=== PATIENT | female | born 1960 | race Caucasian/White ===

== ENCOUNTER 2022-12-27 14:44 | Outpatient (CLI) | payer OTHER, SELFPAY ==
--- NOTE | 2022-12-27 15:00 | CRLHL7_ITS ---
For Patients: As a result of the Century Cures Act, medical imaging exams and procedure reports are released immediately into your electronic medical record. You may view this report before your referring provider. If you have questions, please contact your health care provider. BILATERAL SCREENING MAMMOGRAM WITH COMPUTER-AIDED DETECTION AND TOMOSYNTHESIS TECHNIQUE: CC, MLO and Implant displaced views were obtained. These mammographic images have been obtained using full-field digital technique. These mammographic images were interpreted with the benefit of computer-aided detection. Breast Tomosynthesis was used in this interpretation. COMPARISON FILM: No comparison available. FINDINGS: There are scattered areas of fibroglandular density IMPRESSION: There is no radiographic evidence for malignancy. ASSESSMENT: BI-RADS Category 2: Benign RECOMMENDATION: Routine screening mammogram in 1 year. A lay language report of this examination will be provided to the patient. Justin Crawley M.D. Diagnostic Radiologist [email or web address] RICHELLE/Dictated by: Justin Crawley MD @ 12/28/2022 11:36:00 AM (Electronically Signed)
--- NOTE | 2022-12-27 15:30 | CRLHL7_ITS ---
For Patients: As a result of the Century Cures Act, medical imaging exams and procedure reports are released immediately into your electronic medical record. You may view this report before your referring provider. If you have questions, please contact your health care provider. DXA BONE MINERAL DENSITY STUDY Reason for exam: Asymptomatic menopausal state. Screening. Current height (in): 66. Weight (lb): 145. Menopause age: 57. Ethnicity: White. 1. Have you had a previous hip or vertebral fracture? No. 2. Have you had any fractures during your adult life which did not result from significant trauma (e.g., auto accident)? No. 3. Did either of your parents have a hip fracture? No. 4. Do you smoke? No. 5. Have you ever taken Glucocorticoids? No. 6. Do you have rheumatoid arthritis? No. 7. Do you have secondary osteoporosis? No. 8. Do you drink 3 or more alcoholic drinks per day? No. 9. Are you being treated for osteoporosis? No. 10. Have you ever taken any of the following medications: Actonel, Evista, Fosamax, Miacalcin, Reclast, Boniva, Forteo, HRT (i.e., estrogen/hormone therapy), Protelos, Prolia, Vitamin D, Calcium, other ??? please specify. ANSWER: Yes, vitamin D and calcium. 11. Do you have any of the following medical conditions: Anorexia or bulimia, asthma or emphysema, end stage renal disease, hyperparathyroidism, any seizure disorders, cancer, inflammatory bowel diseases, hysterectomy, other ??? please specify. ANSWER: No. 12. What was your maximum height (inches)? 67. 13. Do you perform weight bearing exercise regularly? Yes. 14. Do you regularly consume dairy products? No. 15. Do you drink caffeinated beverages? Yes. If female: 16. At what age did your period start? 14. 17. Are you premenopausal? No. 18. How many full-term pregnancies have you had? 3. 19. Have you ever missed your period for more than 6 months in a row (not including or menopause)? No. TECHNIQUE: Bone mineral density study was performed using the [employer]annah Wi. FINDINGS: The results of the study expressed as bone mineral density (BMD) are as follows: Lumbar spine L1 to L4: BMD: 0.814 g/cm2. T-score: -2.1. Z-score: -0.6 Neck Left: BMD: 0.676 g/cm2. T-score: -1.6. Z-score: -0.2 Right: BMD: 0.666 g/cm2. T-score: -1.6. Z-score: -0.3 Total Left: BMD: 0.783 g/cm2. T-score: -1.3. Z-score: -0.3 Right: BMD: 0.788 g/cm2. T-score: -1.3. Z-score: -0.3 IMPRESSION: Osteopenia. FRAX 10-year Fracture Risk Major Osteoporotic Fracture: 8.3% Hip Fracture: 0.8% Reported Risk Factors: [place] () Neck BMD=0.666, BMI= 23.4 Justin Crawley M.D. Diagnostic Radiologist [email or web address] GEOVANNA/vanessa mendez/Dictated by: Justin Crawley MD @ 12/28/2022 7:01:00 AM (Electronically Signed)
--- NOTE | 2022-12-27 16:00 | CRLHL7_ITS ---
For Patients: As a result of the Cures Act, medical imaging exams and procedure reports are released immediately into your electronic medical record. You may view this report before your referring provider. If you have questions, please contact your health care provider. CLINICAL HISTORY: family hx of heart disease TECHNIQUE: The carotid circulations and the vertebral arteries in the neck were examined with manrique-scale ultrasound, color-flow and Doppler spectral analysis. Degrees of stenosis were determined using SRU 2002 Consensus Panel Criteria. FINDINGS: Sonographic images demonstrate no evidence of atherosclerotic plaque formation or suspicious soft tissue mass. There was antegrade blood flow demonstrated within the vertebral arteries and the subclavian arteries demonstrated a normal triphasic waveform. The spectral Doppler tracings of the common carotid, internal and external carotid arteries demonstrate no abnormal turbulence or spectral broadening. There was no significant elevation of peak systolic blood flow which would indicate a hemodynamically-significant stenosis by SRU criteria. The ICA/CCA peak systolic velocity ratio measures 1.1 on the right and 0.9 on the left. IMPRESSION: Normal carotid ultrasound. Dictated by Justin Crawley MD @ 12/28/2022 9:15:50 AM (Electronically Signed)
== END 2022-12-27 14:45 | disposition home or self-care (01) ==
LOC: MAMMO 14:45
PROVIDERS: PCP Physician Assistant Medical; Visit Provider Physician Assistant Medical
DX: Z12.31 Encounter for screening mammogram for malignant neoplasm of breast (principal); Z13.820 Encounter for screening for osteoporosis; M85.89 Other specified disorders of bone density and structure, multiple sites; Z78.0 Asymptomatic menopausal state; Z82.49 Family history of ischemic heart disease and other diseases of the circulatory system
CPT/HCPCS: 77063; 77067; 77080; 93880

== ENCOUNTER 2023-10-10 09:05 | Outpatient (CLI) | payer OTHER, SELFPAY | END 2023-10-10 09:06 | disposition home or self-care (01) | LOC: NFLDREF 10-29 15:33 | PROVIDERS: PCP Physician Assistant Medical; Referring Provider Physician Assistant Medical; Visit Provider Physician Assistant Medical | DX: Z00.00 Encounter for general adult medical examination without abnormal findings (principal); M54.50 Low back pain, unspecified; G89.29 Other chronic pain | CPT/HCPCS: 80053; 80061; 84443 ==

== ENCOUNTER 2023-10-29 07:06 | Outpatient (CLI) | payer OTHER, SELFPAY ==
--- OUTSIDE RECORDS SUMMARY | 2023-10-29 07:09 | XMS_ITS | Data Portability ---
Author Organization [facility], [id number] Address [address] [place] [address] Care Team Providers Care Inside Sales Administrator Name Role Phone ROSA ELENA CANALES Primary Care Provider Assessment No assessment recorded. Plan of Treatment Reminders Order Date Submit Date Provider Last Modified By Organization Details Last Modified Time Details Appointments None recorded. Lab pathology study 2020 021 MACEY [facility], [address] [place], [address], 11:29:35 Referral None recorded. Procedures None recorded. Surgeries None recorded. Imaging None recorded. Medication Orders None recorded. Patient TargetsNo targets recorded. Patient InstructionsNo instructions recorded. Reason for Referral None Reported. Results Created Date Observation Date Name Description Value Unit Range Abnormal Flag LastModifiedBy Organization Detail LastModifiedTime 11/11/1911/10/2020 SURGI ABRAHAM PATHO LOGY case report See note Not Available [facility] [address] [place], [address], 11/15/2020 11:29:35 Result Notes None recorded. Procedures Surgical History Date Name Laterality Status Provider Name and Address Organization Details Recorded Time 11/11/19 21 Colposcopy (vaginal & cervical) ([facility]) [place] [address] [facility],[address], [place], [address], HERMANN Berg [facility] 11/10/2020 14:42:18 11/11/19 21 endocervical curettage completed Jung Mattsonsylviahetal marks [facility] 11/15/2020 11:34:18 10/21/19 21 Date of Last Pap Smear completed [facility]MAN[facility] Jesus Buddy Berg [facility] 11/10/2020 13:57:38 Imaging Results None recorded. Procedure Notes None recorded. Medical Equipment None Reported. Allergies No known drug allergies Medications Not known to be on any medication Vitals Date Recorded Body weight Body mass index (BMI) Body height Systolic blood pressure Diastolic blood pressure Provider Name and Address Organization Details Last Updated DateTime 11/10/2020 65928.24 g 22.8 kg/m2 167.64 cm 118 mm[Hg] 80 mm[Hg] Marci Anderson [facility] 13:57:26 Social History Question Answer Notes LastModified by xTurionizat ion Details LastModified Time Tobacco Smoking Status Never Smoker [facility] 11/10/2020 14:06:23 Do You Have An Advance Directive? No Information not available 11/10/2020 What Is Your Level Of Alcohol Consumption? Occasional 4dr/wk Information not available 11/10/2020 What Is Your Level Of Caffeine Consumption? Moderate 2c/day Information not available 11/10/2020 Which Illicit Or Recreational Drugs Have You Used? None Information not available 11/10/2020 History Of Domestic Violence No Information no t available 11/10/2020 Marital Status Informatio n not available 11/10/2020 Sex: Female Functional Status Question Answer Note LastModified by Organization D etails LastModified Time What is your exercise level? Moderate Information not available 11/10/2020 Mental Status None recorded. Family History Nothing Reported. Medical History No medical history recorded. Gynecological History Statement/Question Response History of Abnormal PAP Y Age at Menarche: 14 Date of LMP Current Control Method Menopause Age at Menopause 55 Date of Last Pap Smear 10/20/2020 Obstetrics History GPAL:G 3 P 3 0 0 3 Type Value Full Term 3 Living 3 Total 3 Past Encounters Encounter ID Performer Location Encounter Start Date Encounter Closed Date Diagnosis/Indication Diagnosis SNOMED-CT Code [id number] HANY OLIVAREZ MD [id number] [address] [facility] [address] [place] [address] 11/10/2020 13:50:24 11/10/2020 14:57:03 Atypical squamous cells of undetermined significance on cervical Papanicolaou smear 587248210 Condyloma acuminata of vulva 330198630 Health Concerns Section Related Observation LastModified by Organization Detai ls LastModified Time None Recorded Concern Status LastModified by Organization Details LastModified Time None Recorded Advance Directives Directive N: Payers Encounter Date Sequence Insurance Name Policy Number Policy Lazo Covered Member ID Lazo Member ID Guarantor Name 11/10/2020 1 [employer] [id number] Laura Bentley [id number] Laura Bentley Notes Date Note Type Note Provider Name and Address Organization Details Recorded Time 11/10/2020 text/html HPI Notes: 60yo postmenopausal female presenting for colposcopy. 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 Last pap 08/16/15- negative 10/20/20- ASCUS, +HR HPV not 16/18 Non-smoker. No STi history. [place] [address] [facility],[address], [place], [address], [facility] 11/10/2020 14:46:13 OBGyn Episode Ob Episode Information Episode Created Date Number of Fetuses Patient Bloodtype Patient rh Status Prepregnancy Weight lbs Domestic Partner Domestic Partner Phone Father Name Knock Up Assembler Status 11/11/19 21 1 CLOSED Fetus Data First Name Last Name Admitted to NICU Weight (g) Sex Living Outcome Pediatric Complications Fetus ID Race Codes Race Delivery Type 3316.66 4704 M Full Term [id number] Joel Calculation Initial Joel Date Initial Exam Date Initial Exam Provider Initial Ultrasound Date Last Menstrual Period Date Ultra Sound Weeks Gestation 0 Eighteen To Twenty Week Joel Update Ultra Sound Date Fundal Height At Umbil Quickening Date Ultra Sound Latest Weeks Gestation Final Joel Confirmed By Final Joel Confirmed Date Final Joel Date Ultra Sound Latest Days Gestation 0 0 Menstrual History Last Menstrual Date Menses Monthly On Bcp Conception Prior Menses Frequency Hcg Plus Date Menarche Onset Age Delivery Information Delivery Date Delivery Type Labor Anesthesia Weeks Gestation Incision Type Labor Labor Length Hrs Delivered By Post Complications Tubal Sterilization Discharge Date Comments 4 4 Discharge Information Feeding Method Contraceptive Method Maternal HG B and HCT Levels Ob Episode Information Episode Created Date Number of Fetuses Patient Bloodtype Patient rh Status Prepregnancy Weight lbs Domestic Partner Domestic Partner Phone Father Name Knock Up Assembler Status 11/11/19 21 1 CLOSED Fetus Data First Name Last Name Admitted to NICU Weight (g) Sex Living Outcome Pediatric Complications Fetus ID Race Codes Race Delivery Type 3345.24 1 M Full Term [id number] Joel Calculation Initial Joel Date Initial Exam Date Initial Exam Provider Initial Ultrasound Date Last Menstrual Period Date Ultra Sound Weeks Gestation 0 Eighteen To Twenty Week Joel Update Ultra Sound Date Fundal Height At Umbil Quickening Date Ultra Sound Latest Weeks Gestation Final Joel Confirmed By Final Joel Confirmed Date Final Joel Date Ultra Sound Latest Days Gestation 0 0 Menstrual History Last Menstrual Date Menses Monthly On Bcp Conception Prior Menses Frequency Hcg Plus Date Menarche Onset Age Delivery Information Delivery Date Delivery Type Labor Anesthesia Weeks Gestation Incision Type Labor Labor Length Hrs Delivered By Post Complications Tubal Sterilization Discharge Date Comments 9 6 Discharge Information Feeding Method Contraceptive Method Maternal HG B and HCT Levels Ob Episode Information Episode Created Date Number of Fetuses Patient Bloodtype Patient rh Status Prepregnancy Weight lbs Domestic Partner Domestic Partner Phone Father Name Knock Up Assembler Status 11/11/19 21 1 CLOSED Fetus Data First Name Last Name Admitted to NICU Weight (g) Sex Living Outcome Pediatric Complications Fetus ID Race Codes Race Delivery Type 3656.85 8704 F Full Term [id number] Joel Calculation Initial Joel Date Initial Exam Date Initial Exam Provider Initial Ultrasound Date Last Menstrual Period Date Ultra Sound Weeks Gestation 0 Eighteen To Twenty Week Joel Update Ultra Sound Date Fundal Height At Umbil Quickening Date Ultra Sound Latest Weeks Gestation Final Joel Confirmed By Final Joel Confirmed Date Final Joel Date Ultra Sound Latest Days Gestation 0 0 Menstrual History Last Menstrual Date Menses Monthly On Bcp Conception Prior Menses Frequency Hcg Plus Date Menarche Onset Age Delivery Information Delivery Date Delivery Type Labor Anesthesia Weeks Gestation Incision Type Labor Labor Length Hrs Delivered By Post Complications Tubal Sterilization Discharge Date Comments 1 10 Discharge Information Feeding Method Contraceptive Method Maternal HG B and HCT Levels
--- OUTSIDE RECORDS SUMMARY | 2023-10-29 07:09 | XMS_ITS | Referral Summary ---
Author Organization [place] Address [address] [place] [id number] Care Team Providers Care Electronic Scanner Operator Name Role Phone No Ref-Primary, Physician Primary Care Provider Allergies No known active allergies Medications No known medications Active Problems Problem Noted Date Diagnosed Date Thyroid nodule 08/11/2014 Hyperlipidemia LDL goal <160 10/01/2012 Abnormal uterine bleeding 10/01/2012 Immunizations Name Administration Dates Next Due Influenza (IIV3) PF 02/25/2012 Influenza Vaccine >6 months,quad, PF 02/22/2016 TDAP (Adacel,Boostrix) 07/11/2010 Social History Tobacco Use Types Packs/Day Years Used Date Smoking Tobacco: Never Smokeless Tobacco: Never Alcohol Use Standard Drinks/Week Comments Yes 0 (1 standard drink = 0.6 oz pur e alcohol) wine-socially PHQ-2 Answer Date Recorded PHQ-2 Score 0 05/23/2018 Adolescent Education Answer Date Record ed Getting School Help Needed Not on file 02/16 Sex and Gender Information Value Date Recorded Sex Assigned at Not on file Gender Identity Not on file Sexual Orientation Not on file Last Filed Vital Signs Vital Sign Reading Time Taken Comments Blood Pressure 112/78 02/22/2016 8:38 AM CDT Pulse 62 02/22/2016 8:38 AM CDT Temperature 36.9 ??C (98.4 ??F) 02/22/2016 8:38 AM CD T Respiratory Rate 16 02/23/2013 9:13 AM CDT Oxygen Saturation 98% 08/11/2014 10:44 AM CDT Inhaled Oxygen Concentration - - Weight 67.6 kg (149 lb) 02/22/2016 8:38 AM CDT Height 167 cm (5' 5.75) 02/22/2016 8:38 AM CDT Body Mass Index 24.23 02/22/2016 8:38 AM CDT Plan of Treatment Not on file Procedures Procedure Name Priority Date/Time Associated Diagnosis Comments MA SCREENING WITH IMPLANTS BILATERAL W/ KARL Routine 09/18/2021 9:41 AM CDT Visit for screening mammogram COLONOSCOPY - HIM SCAN 06/02/2019 12:00 AM APPLICATION SPEC HPV HIGH RISK TYPES DNA CERVICAL Routine 02/22/2016 9:44 AM CDT Screening for cervical cancer PAP IMAGED THIN LAYER SCREEN Routine 02/22/2016 12:00 AM CDT Screening for cervical cancer GLUCOSE Routine 08/11/2014 11:11 AM CDT Routine General Medical Examination At A Health Care Facility LIPID REFLEX TO DIRECT LDL PANEL Routine 08/11/2014 11:11 AM CDT Routine General Medical Examination At A Health Care Facility from Last 3 Months or Most Recently Relevant to Health Maintenance Results * MA Screen with Implants Bilateral w/Karl (09/18/2021 9:41 AM CDT) Anatomical Region Laterality Modality Breast Bilateral Mammography Narrative 09/18/2021 11:31 AM CDT BILATERAL FULL FIELD DIGITAL SCREENING MAMMOGRAM WITH TOMOSYNTHESIS Performed on: 09/18/21 Compared to: 06/01/2020 and 08/11/2014 Technique: ??This study was evaluated with the assistance of Computer-Aided Detection. ??Breast Tomosynthesis was used in interpretation. Findings: The breasts are heterogeneously dense, which may obscure small masses. ??There are breast augmentation changes in both breasts. There is no radiographic evidence of malignancy. IMPRESSION: ACR BI-RADS Category 2: Benign RECOMMENDED FOLLOW-UP: Annual routine screening mammogram The results and recommendations of this examination will be communicated to the patient. Yumiko Garcia PA-C [facility] * COLONOSCOPY - HIM SCAN (06/02/2019 12:00 AM APPLICATION SPEC) 06/02/2019 Provider Outside PROCEDURES * HPV High Risk Types DNA Cervical (02/22/2016 9:44 AM CDT) HPV 16 DNA Negative [facility] HPV 18 DNA Negative [facility] Other HR HPV Negative [facility] Final Diagnosis This patient's sample is negative for HPV DNA. ?? The [employer] (ACOG) recommends any woman between 30-65 years old who receives negative test results on both Pap cytology screening and HPV DNA testing should be rescreened in 5 years. (Note) METHODOLOGY: ??The Elliott daksha 4800 system uses automated extraction, simultaneous amplification of HPV (L1 region) and beta-globin, followed by ??real time detection of fluorescent labeled HPV and beta globin using specific oligonucleotide probes . The test specifically identifies types HPV 16 DNA and HPV 18 DNA while concurrently detecting the rest of the high risk types (31, 33, 35, 39, 45, 51, 52, 56, 58, 59, 66 or 68). COMMENTS: ??This test is not intended for use as a screening device for women under age 30 with normal cervical cytology. ??Results should be correlated with cytologic and histologic findings. Close clinical followup is recommended. This test was developed and its performance characteristics determined by the [facility]. It has not been cleared or approved by the FDA. The laboratory is regulated under CLIA as qualified to perform high-complexity testing. This test is used for clinical purposes. It should not be regarded as investigational or for research. [facility] Specimen Description Cervical Cells [facility] [address] [facility] Cervical Cells 02/22/2016 9: 44 AM CDT 02/22/2016 9:50 AM CDT Lynn Tena MD LAB - BLOOD ORDER [facility] [address] [place] [address] * Pap imaged thin layer screen with HPV - recommended age 30 - 65 years (select HPV order below) (02/22/2016 12:00 AM CDT) PAP NIL COPATH Copath Report Patient Name: LAURA KITCHEN MR#: [id number] Specimen #: [id number] Collected: 02/22/2016 Received: 02/22/2016 Reported: 02/24/2016 08:58 Ordering Phy(s): LYNN TENA SPECIMEN/STAIN PROCESS: Pap imaged thin layer prep screening (Surepath, FocalPoint with guided screening) ? Pap-Cyto x 1, HPV ordered x 1 SOURCE: Cervical, endocervical Pap imaged thin layer prep screening (Surepath, FocalPoint with guided screening) SPECIMEN ADEQUACY: Satisfactory for evaluation. -Transformation zone component present. CYTOLOGIC INTERPRETATION: Negative for Intraepithelial Lesion or Malignancy Electronically signed out by: AMRIK Melendrez (ASCP) Processed and screened at [facility] CLINICAL HISTORY: LMP: 02/03/2013 Papanicolaou Test Limitations: ??Cervical cytology is a screening test with limited sensitivity; regular screening is critical for cancer prevention; Pap tests are primarily effective for the diagnosis/preventi on of squamous cell carcinoma, not adenocarcinomas or other cancers. TESTING LAB LOCATION: [address] ??[address] COLLECTION SITE: Client: ??[facility] Location: [facility] (R) COPATH Cytologic material (specimen) 02/22/2016 02/22/2016 3:35 PM CDT Lynn Tena MD LAB - [facility] ICAL SPECIMEN COPATH * (ABNORMAL) LIPID REFLEX TO DIRECT LDL PANEL (08/11/2014 11:11 AM CDT) Cholesterol 219(H) <200 mg/dL [facility] Comment: LDL Cholesterol is the primary guide to therapy. The NCEP recommends further evaluation of: patients with cholesterol greater than 200 mg/dL if additional risk factors are present, cholesterol greater than 240 mg/dL, triglycerides greater than 150 mg/dL, or HDL less than 40 mg/dL. Triglycerides 60 0 - 150 mg/dL [facility] HDL Cholesterol 93 >50 mg/dL [facility] LDL Cholesterol Calculated 114 0 - 129 mg/dL [facility] Comment: LDL Cholesterol is the primary guide to therapy: LDL-cholesterol goal in high risk patients is <100 mg/dL and in very high risk patients is <70 mg/dL. VLDL-Cholesterol 12 0 - 30 mg/dL [facility] Cholesterol/HDL Ratio 2.4 0.0 - 5.0 [facility] Blood specimen (specimen) 08/11/2014 11:11 AM CDT 08/11/2014 11:13 AM CDT Kari Montero APRN, CNP LAB - BLOOD ORDERABLES Performing Organization Address City/[facility] [address]/ZIP Co de Phone Number [facility] [address] [place] [id number] * GLUCOSE (08/11/2014 11:11 AM CDT) Glucose 85 70 - 99 mg/dL [facility] Comment: Effective 12/09/2013, the reference range for this assay has changed to reflect new instrumentation/methodology. Blood specimen (specimen) 08/11/2014 11:11 AM CDT 08/11/2014 11:13 AM CDT Kari Montero APRN CODE OFFICIAL LAB - BLOOD ORDERABLES Performing Organization Address City/[facility] [address]/ZIP Co de Phone Number [facility] [address], [place] [address] from Last 3 Months or Most Recently Relevant to Health Maintenance Care Teams Electronic Scanner Operator Relationship Specialty Start Date End Date No Ref-Primary, Physician PCP - General 08/29/15
--- OUTSIDE RECORDS SUMMARY | 2023-10-29 07:09 | XMS_ITS | Clinical Summary ---
Author Organization [employer] [facility] [employer] [facility] Address [place], [place] [address] Care Team Providers Care Underwriting Technician Name Role Phone Pcp, No Primary Care Provider Unavailabl e Allergies No known active allergies Medications Medication Sig Dispensed Refills Start Date End Date Status predniSONE (DELTASONE) 50 mg tab tabletIndications:CO VID-19 virus infection One po QAM as needed symptoms. 10 Tablet 06/05/2023 Active codeine-guaiFENesin (ROBITUSSIN AC) 10-100 mg/5 mL liquidIndications:CO VID-19 virus infection 2 teaspoons p.o. q8hr as needed for cough/sleep 120 mL 06/05/2023 Active Social History Tobacco Use Types Packs/Day Years Used Date Smoking Tobacco: Never Assessed Sex and Gender Information Value Date Recorded Sex Assigned at Not on file Gender Identity Not on file Sexual Orientation Not on file Plan of Treatment Health Maintenance Due Date Last Done Comments Tdap 1973 Depression screening for age 12+ 1974 HIV for age 15-65 1977 BMI (ht and wt on same day) for age 18+ 01/04/1980 Hepatitis C screening for age 18-79 01/04/1980 Tetanus booster 1982 Colonoscopy through age 75 2007 Lipids for age 45-75 2007 Mammogram for age 45-75 2007 Zoster (shingles) series for age 50+ (1 of 2) 01/04/2012 COVID-19 vaccine series ( - season) 2023 Influenza for age 50-64 01/12/2024 Pap test for age 21-65 10/04/2025 3, 09/29/2021, 09/29/2021, Additional history exists Pneumococcal series for age 6-64 Aged Out No longer eligible based on patient's age to complete this topic Procedures Procedure Name Priority Date/Time Associated Diagnosis Comments HPV THIN PREP Routine 10/04/2022 9:15 AM CDT from Last 3 Months or Most Recently Relevant to Health Maintenance Results * HPV HIGH RISK (10/04/2022 9:15 AM CDT) TYPE 16 Negative Negative 10/11/2022 5:59 AM CDT [facility] TYPE 18 Negative Negative 10/11/2022 5:59 AM CDT [facility] OTHER HIGH RISK TYPES Negative Negative 10/11/2022 5:59 AM CDT [facility] Other (Cervical/Vagina l) 10/04/2022 9:15 AM CDT 10/05/2022 2:14 PM CDT Narrative [facility] - 10/11/2022 5:59 AM CDT HPV types 16, 18, 31, 33, 35, 39, 45, 51, 52, 56, 58, 59, 66 and 68 DNA were undetectable or below the pre-set threshold. Methodology: Elliott Shantell 4800 HPV Test Yumiko Garcia PA-C [facility] [address] [place] [address], from Last 3 Months or Most Recently Relevant to Health Maintenance Care Teams Underwriting Technician Relationship Specialty Start Date End Date Pcp, No . PCP - General 09/24/14
--- OUTSIDE RECORDS SUMMARY | 2023-10-29 07:09 | XMS_ITS | Clinical Summary ---
Author Organization [employer] Address [address] [place] [id number] Care Team Providers Care Inside Sales Account Representative Name Role Phone No Ref-Primary, Physician Primary Care Provider Allergies No known active allergies Medications No known medications Active Problems Problem Noted Date Diagnosed Date Thyroid nodule 08/11/2014 Hyperlipidemia LDL goal <160 10/01/2012 Abnormal uterine bleeding 10/01/2012 Immunizations Name Administration Dates Next Due Influenza (IIV3) PF 02/25/2012 Influenza Vaccine >6 months,quad, PF 02/22/2016 TDAP (Adacel,Boostrix) 07/11/2010 Family History Medical History Relation Comments Family History Negative Brother 5 Alzheimer Disease Father Family History Negative Mother Family History Negative Sister 1 Breast Cancer No family hx of Cancer - colorectal No family hx of Relation Status Comments Brother Father Mother Alive Sister Social History Tobacco Use Types Packs/Day Years [...] 02/22/2016 8:38 AM CDT Plan of Treatment Health Maintenance Due Date Last Done Comments ADVANCE CARE PLANNING 1962 ANNUAL REVIEW OF HM ORDERS [address] CT COLONOGRAPHY 1962 FIT 1962 FLEX SIG 1962 sDNA (Cologuard) 1962 HIV SCREENING 1977 HEPATITIS C SCREENING 01/04/1980 ZOSTER IMMUNIZATION (1 of 2) 01/04/2012 LIPID 08/12/2015 08/11/2014 GLUCOSE 08/11/2017 08/11/2014 YEARLY PREVENTIVE VISIT 01/16/2018 01/16/2017, 02/23 HPV TEST 02/21/2019 02/22/2016 PAP 02/21/2019 02/22/2016, 08/12, 07/11/2012 RSV VACCINE ( & 60+) (1 - 1-dose 60+ series) 2022 COVID-19 Vaccine (3 - season) 2023 01/13/2021, 12/20/2020 PHQ-2 (once per calendar year) 2023 02/22/2016 MAMMO SCREENING 09/19/2023 09/18/2021, 05/14, 03/31/2019, Additional history exists INFLUENZA VACCINE (Season Ended) 2024 02/09/2019, 03/05/2018, 01/16/2017, Additional history exists COLONOSCOPY 06/02/2024 06/02/2019, 01/13/2014 COLORECTAL CANCER SCREENING 06/02/2024 DTAP/TDAP/TD IMMUNIZATION (3 - Td or Tdap) 09/04/2025 09/05/2015, 07/11/2010 HPV IMMUNIZATION Aged Out No longer e ligible based on patient's age to complete this topic IPV IMMUNIZATION Aged Out No longer e ligible based on patient's age to complete this topic MENINGITIS IMMUNIZATION Aged Out No l onger eligible based on patient's age to complete this topic Pneumococcal Vaccine: Pediatrics (0 to 5 Years) and At-Risk Patients (6 to 64 Years) Aged Out No longer eligible based on patient's age to complete this topic RSV MONOCLONAL ANTIBODY Aged Out No l onger eligible based on patient's age to complete this topic Procedures Procedure Name Priority Date/Time Associated Diagnosis Comments MA SCREENING WITH IMPLANTS BILATERAL W/ KARL Routine 09/18/2021 9:41 AM CDT Visit for screening mammogram COLONOSCOPY - HIM SCAN 06/02/2019 12:00 AM WEB PRESS OPERATOR HPV HIGH RISK TYPES DNA CERVICAL Routine [...] COLONOSCOPY - HIM SCAN (06/02/2019 12:00 AM WEB PRESS OPERATOR) 06/02/2019 Provider Outside PROCEDURES * HPV High Risk Types DNA Cervical (02/22/2016 9:44 AM CDT) HPV 16 DNA Negative [facility] HPV 18 DNA Negative [facility] Other HR HPV Negative [facility] Final Diagnosis This patient's sample is negative for HPV DNA. ?? The [place] [employer] (ACOG) recommends any woman between 30-65 years old who receives negative test results on both Pap cytology screening and HPV DNA testing should be rescreened in 5 years. (Note) METHODOLOGY: ??The [employer] 4800 system uses automated extraction, simultaneous [...] and its performance characteristics determined by the [facility], Molecular Diagnostics Laboratory. It has not been cleared or approved by the FDA. The laboratory is regulated under CLIA as qualified to perform high-complexity testing. This test is used for clinical purposes. It should not be regarded as investigational or for research. [facility] Specimen Description Cervical Cells [id number] [facility] Cervical Cells 02/22/2016 9: 44 AM CDT 02/22/2016 9:50 AM CDT Lynn Tena MD LAB - BLOOD ORDER [facility] [address] [place] [address] * Pap imaged thin layer screen with HPV - recommended age 30 - 65 years (select HPV order below) (02/22/2016 12:00 AM CDT) PAP KENYATTA Avalos Report Patient Name: LAURA KITCHEN MR#: [id number] Specimen #: [id number] Collected: 02/22/2016 Received: 02/22/2016 Reported: 02/24/2016 08:58 [...] AMRIK Melendrez (ASCP) Processed and screened at [facility] CLINICAL HISTORY: LMP: 02/03/2013 Papanicolaou Test Limitations: ??Cervical cytology is a screening test with limited sensitivity; regular screening is critical for cancer prevention; Pap tests are primarily effective for the diagnosis/preventi on of squamous cell carcinoma, not adenocarcinomas or other cancers. TESTING LAB LOCATION: [address] ??[address] COLLECTION SITE: Client: ??[facility] Location: [facility] (R) [facility] Cytologic material (specimen) 02/22/2016 02/22/2016 3:35 PM CDT Lynn Tena MD LAB - [facility] ICAL SPECIMEN COPATH * (ABNORMAL) LIPID REFLEX TO DIRECT LDL PANEL (08/11/2014 11:11 AM CDT) Cholesterol 219(H) <200 mg/dL [facility] Comment: LDL Cholesterol is the primary guide to therapy. The NCEP recommends further evaluation of: patients with cholesterol greater than 200 mg/dL if additional risk factors are present, cholesterol greater than 240 mg/dL, triglycerides greater than 150 mg/dL, or HDL less than 40 mg/dL. Triglycerides 60 0 - 150 mg/dL [facility] HDL Cholesterol 93 >50 mg/dL [facility] LDL Cholesterol Calculated 114 0 - 129 mg/dL [facility] Comment: LDL Cholesterol is the primary guide to therapy: LDL-cholesterol goal in high risk patients is <100 mg/dL and in very high risk patients is <70 mg/dL. VLDL-Cholesterol 12 0 - 30 mg/dL [facility] Cholesterol/HDL Ratio 2.4 0.0 - 5.0 [facility] Blood specimen (specimen) 08/11/2014 11:11 AM CDT 08/11/2014 11:13 AM CDT Kari Montero APRN, CNP LAB - BLOOD ORDERABLES Performing Organization Address City/[facility]/ZIP Co de Phone Number [facility] [address], [place] [address] * GLUCOSE (08/11/2014 11:11 AM CDT) Glucose 85 70 - 99 mg/dL [facility] Comment: Effective 12/09/2013, the reference range for this assay has changed to reflect new instrumentation/methodology. Blood specimen (specimen) 08/11/2014 11:11 AM CDT 08/11/2014 11:13 AM CDT Kari Montero APRN, CNP LAB - BLOOD ORDERABLES Performing Organization Address City/[facility]/ZIP Co de Phone Number [facility] [address], [place] [address] from Last 3 Months or Most Recently Relevant to Health Maintenance Care Teams Inside Sales Account Representative Relationship Specialty Start Date End Date No Ref-Primary, Physician PCP - General 08/29/15
--- OUTSIDE RECORDS SUMMARY | 2023-10-29 07:09 | XMS_ITS | Clinical Summary ---
Author Organization [facility] Address [address] [place] [address] Care Team Providers Care [employer] Guidance Counselor Name Role Phone Clinician, Not Found MD Primary Care Provider Un available Source Comments You are receiving this document as you are listed as the primary care provider,follow-up provider, or the patient has been referred to you for consultation.This is in compliance with the Medicare and[facility] Hospital[facility] EHR Incentive Program,which states Providers who transition their patient to another setting of careor provider of care or refers their patient to another provider of care shouldprovide summary care record for each transition of care or referral. [employer] Allergies No known active allergies Medications No known medications Active Problems Problem Noted Date Diagnosed Date Rotator cuff syndrome 02/04/2017 Thyroid nodule 08/11/2014 Hyperlipidemia LDL goal <160 10/01/2012 Immunizations Name Administration Dates Next Due Flublok (RIV4) 02/09/2019 Influenza IIV4 (Quadrivalent) 0.5mL (82999) 10/2016 Tdap 09/05/2015,07/21/2010 Family History Medical History Relation Name Comments Alzheimer's Father Relation Name Status Comments Father Social History Tobacco Use Types Packs/Day Years Used Date Smoking Tobacco: Never Smokeless Tobacco: Never Alcohol Use Standard Drinks/Week Comments Yes 0 (1 standard drink = 0.6 oz pur e alcohol) 2 weekly PHQ-2 Answer Date Recorded PHQ-2 Score 0 04/01/2019 Sex and Gender Information Value Date Recorded Sex Assigned at Not on file Gender Identity Not on file Sexual Orientation Not on file Last Filed Vital Signs Vital Sign Reading Time Taken Comments Blood Pressure 123/73 04/01/2019 9:40 AM PUTTY REMOVER Pulse 55 04/01/2019 9:40 AM PUTTY REMOVER Temperature - - Respiratory Rate - - Oxygen Saturation - - Inhaled Oxygen Concentration - - Weight 69.4 kg (153 lb) 04/01/2019 9:40 AM PUTTY REMOVER Height 165.7 cm (5' 5.25) 04/01/2019 9:40 AM CS T Body Mass Index 25.27 04/01/2019 9:40 AM PUTTY REMOVER Plan of Treatment Health Maintenance Due Date Last Done Comments Hep C Screening (Preventive Services) 1962 HIV Screening (Preventive Services) 1978 Zoster/Shingles (1 of 2) 01/04/2012 Mammogram 03/30/2020 03/30/2019 (Completed), 09/24/2016 (Completed) Adult Preventive Visit 04/01/2020 9, 01/16/2017 COVID-19 Vaccine (2022-2 4 season) 2023 12/20/2020 Influenza (Season Ended) 2024 019, 01/16/2017 Cervical Cancer Screening 04/01/20242018, 02/22/2016 (Completed) Cholesterol 04/01/2024 04/01/2019, 01/16/2017 Colonoscopy 06/02/2024 06/02/2019, 01/13/2014 (Completed) DTaP/Tdap/Td (3 - Tdap) 09/04/2025 09/05/19 16, 07/21/2010 HepA Aged Out No longer eligi ble based on patient's age to complete this topic HepB Aged Out No longer eligi ble based on patient's age to complete this topic Hib Aged Out No longer eligi ble based on patient's age to complete this topic IPV (Polio) Aged Out No longer eligi ble based on patient's age to complete this topic MCV4 Aged Out No longer eligi ble based on patient's age to complete this topic Pneumococcal Aged Out No longer eligi ble based on patient's age to complete this topic Procedures Procedure Name Priority Date/Time Associated Diagnosis Comments COLONOSCOPY S 06/02/2019 LIPID PANEL & DIRECT LDL (IF NEEDED) Routine 04/01/2019 10:28 AM PUTTY REMOVER Encounter for screening for cardiovascular disorders PAP TEST Routine 04/01/2019 10:21 AM PUTTY REMOVER Screening for malignant neoplasm of cervix from Last 3 Months or Most Recently Relevant to Health Maintenance Results * COLONOSCOPY S (06/02/2019) Beatriz Uriostegui DO DUMMY/OTHER/AR * (ABNORMAL) Lipid Panel - LDLD If Trig High (04/01/2019 10:28 AM PUTTY REMOVER) Cholesterol 230(H) 0 - 199 mg/dL 04/01/2019 4:49 PM [facility] Triglyceride 56 <=149 mg/dL 04/01/2019 4:49 PM [facility] HDL Cholesterol 87 >=40 mg/dL 9 4:49 PM [facility] LDL, Calculated 132(H) <130 mg/dL 9 4:49 PM [facility] Non HDL Chol, Calculated 143 mg/dL 04/01/2019 4:49 PM [facility] Cholesterol/HDL Ratio 2.6 04/01/2019 4:49 PM [facility] Hours Fasting 19 04/01/2019 4:49 PM [facility] Blood Venipuncture / Unknown 04/01/2019 10:28 AM PUTTY REMOVER 04/01/2019 10:28 AM PUTTY REMOVER Beatriz Uriostegui DO LAB_1 [facility] [address] [place] [address], [facility] [phone] [facility] [address] [place] [address], [facility] [phone] * PAP Test (04/01/2019 10:21 AM PUTTY REMOVER) Case Report Pap ? Case: [id number] ? Authorizing Provider: ??Beatriz Uriostegui, DO ?? Collected: ? 04/01/2019 10:21 AM ? [facility] Received: ?04/01/2019 10:48 AM ? First Screen: ?Kyleigh, Terrie J, CT (ASCP) ? Pathologist: ? Barry Ingram MD ? Specimen: ?Pap Test, Routine, Cervix/Endocervix ? 04/14/2019 4:52 PM PUTTY REMOVER [facility] Pap Specimen Adequacy Satisfactory for evaluation, endocervical/foster sformation zone component absent. 04/14/2019 4:52 PM PUTTY REMOVER [facility] Pap Interpretation Negative for intraepithelial lesion or malignancy (NILM). 04/14/2019 4:52 PM PUTTY REMOVER [facility] Gross Description The specimen is received in SurePath fixative and properly labeled. 1 Pap-stained SurePath slide is prepared. 04/14/2019 4:52 PM PUTTY REMOVER [facility] Pap Disclaimer The Pap test is a screening test designed to aid in the detection of cervical cancer and its precursor lesions. It is not a diagnostic procedure and should not be used as the sole means of detecting cervical cancer. Both false-positive and false-negative reports may occur. 04/14/2019 4:52 PM PUTTY REMOVER [facility] Embedded Images 9 4:52 PM PUTTY REMOVER [facility] Other Specimen Type ENTIRE ENDOCERVIX / Unknown 04/01/2019 10:21 AM PUTTY REMOVER 04/01/2019 10:48 AM PUTTY REMOVER Comment:LMP: No LMP recorded . Patient is postmenopausal. Beatriz Uriostegui DO LAB PATHOLOGY [facility] [address] [place] [address], [facility] from Last 3 Months or Most Recently Relevant to Health Maintenance Care Teams [employer] Guidance Counselor Relationship Specialty Start Date End Date Clinician, Not Found, [place] [address] PCP - General 08/28/22
--- NOTE | 2023-10-29 08:48 | W.ANESCHARGE ---
Anesthesia Charges Start Date/Time Anesthesia Start Date: 10/29/23 Anesthesia Start Time: 08:09 Stop Date/Time Anesthesia Stop Date: 10/29/23 Anesthesia Stop Time: 08:48
--- NOTE | 2023-10-29 09:42 | W.ANESCHARGE ---
Anesthesia Charges Start Date/Time Anesthesia Start Date: 10/29/23 Anesthesia Start Time: 08:09 Stop Date/Time Anesthesia Stop Date: 10/29/23 Anesthesia Stop Time: 08:48
== END 2023-10-29 07:07 | disposition home or self-care (01) ==
LOC: OP CLINIC 07:07
PROVIDERS: PCP Physician Assistant Medical; Visit Provider Surgery
DX: Z12.11 Encounter for screening for malignant neoplasm of colon (principal); K62.1 Rectal polyp; Z86.010 Personal history of colon polyps
CPT/HCPCS: 00811; 00812; 45385; 88305; J2704

== ENCOUNTER 2024-10-26 08:46 | Outpatient (CLI) | payer OTHER, SELFPAY ==
[2024-10-27 16:36] LABS: HPV Source Cervical/Vag; HPV, High Risk by TMA Not Detected
== END 2024-10-26 08:47 | disposition home or self-care (01) ==
PROVIDERS: PCP Physician Assistant Medical; Visit Provider Physician Assistant Medical
DX: Z00.00 Encounter for general adult medical examination without abnormal findings (principal); R87.610 Atypical squamous cells of undetermined significance on cytologic smear of cervix (ASC-US); M85.80 Other specified disorders of bone density and structure, unspecified site; Z13.6 Encounter for screening for cardiovascular disorders; Z13.29 Encounter for screening for other suspected endocrine disorder; Z11.51 Encounter for screening for human papillomavirus (HPV); Z12.4 Encounter for screening for malignant neoplasm of cervix
CPT/HCPCS: 80053; 80061; 84443; 87624; 87625; 88141; 88142

== ENCOUNTER 2024-11-02 13:02 | Outpatient (CLI) | payer OTHER, SELFPAY ==
--- NOTE | 2024-11-02 13:20 | CRLHL7_ITS ---
For Patients: As a result of the Century Cures Act, medical imaging exams and procedure reports are released immediately into your electronic medical record. You may view this report before your referring provider. If you have questions, please contact your health care provider. INDICATION: BILATERAL SCREENING MAMMOGRAM W/IMPLANTS, ASYMPTOMATIC 64 Y/O FEMALE COMPARISON: 12/27/2022 TECHNIQUE: Digital mammogram in CC and MLO projections including computer-aided detection (CAD) and tomosynthesis. BREAST COMPOSITION: There are scattered areas of fibroglandular density. FINDINGS: No suspicious findings. ASSESSMENT: BI-RADS 2 Benign RECOMMENDATION: Annual screening mammogram. A lay language report of this examination will be provided to the patient. Dictated by: Justin Crawley MD @ 11/03/2024 11:57:33 (Electronically Signed)
--- OUTSIDE RECORDS SUMMARY | 2024-11-03 00:40 | XMS_ITS | Data Portability ---
Author Organization [facility] CORRECTIONAL COUNSELOR, [id number] Address [facility] [address] Care Team Providers Care Stroke Coordinator Name Role Phone ROSA ELENA CANALES Primary Care Provider [phone] Assessment No assessment recorded. Plan of Treatment Reminders Order Date Submit Date Provider Last Modified By Organization Details Last Modified Time Details Appointments None recorded. Lab pathology study 2020 021 [facility] - Lab, [address] [place] [address], [address], 11:29:35 Referral None recorded. Procedures None recorded. Surgeries None recorded. Imaging None recorded. Medication Orders None recorded. Patient TargetsNo targets recorded. Patient InstructionsNo instructions recorded. Reason for Referral None Reported. Results Created Date Observation Date Name Description Value Unit Range Abnormal Flag Note LastModifiedBy Organization Detail LastModifiedTime 11/11/19 21 11/10/2020 SURGI [facility] PATHO LOGY case report See note CASE REPOR T ----- ----- ----- ----- ----- ----- ----- ----- Surgi abraham Patho logy Case: [id number] Autho nina guthrie Provi giselle: Sloan Balbuena MD Colle cted: 11/10 01:45 PM [facility]bey: 11/11 08:50 AM Hospi [facility] al [facility] atory Patho logis t: Hugo Gonzalez MD Speci men: Endoc ervix , Curet tage FINAL DIAGN OSIS ----- ----- ----- ----- ----- ----- ----- ----- Endoc ervix , curet tageL ow-gr destin squam ous intra epith elial lesio n (RADHA- 1), negat roselia for high- grade squam ous intra epith elial lesio n Elect pepper benjamin lucho d by Hugo Gonzalez MD on 021 at 10:29 AM CLINI ABRAH[facility] INFOR MATIO N ----- ----- ----- ----- ----- ----- ----- ----- 6- PAP ASCUS /HPV- POSIT ROSELIA GROSS DESCR IPTIO N ----- ----- ----- ----- ----- ----- ----- ----- ECC: Bagge d, 0.10 g, scant tissu e. IT-1 MICRO SCOPI C DESCR IPTIO N ----- ----- ----- ----- ----- ----- ----- ----- Perfo rmed Not Available [facility] - Lab [address] [place], [address], 11/15/2020 11:29:35 Result Notes None recorded. Procedures Surgical History Date Name Laterality Status Provider Name and Address Organization Details Recorded Time 11/11/19 21 Colposcopy (vaginal & cervical) ([facility]) [place] [address] [address] [facility],[address], [place], [address], [facility] CORRECTIONAL COUNSELOR 11/10/2020 14:42:18 11/11/19 21 endocervical curettage completed Jung MCCRARY - [facility] CORRECTIONAL COUNSELOR 11/15/2020 11:34:18 10/21/19 21 Date of Last Pap Smear completed Marci Anderson [facility] CORRECTIONAL COUNSELOR 11/10/2020 13:57:38 Imaging Results None recorded. Procedure Notes None recorded. Medical Equipment None Reported. Allergies No known drug allergies Medications Not known to be on any medication Vitals Date Recorded Body weight Body mass index (BMI) Body height Systolic blood pressure Diastolic blood pressure Provider Name and Address Organization Details Last Updated DateTime 11/10/2020 45713.24 g 22.8 kg/m2 167.64 cm 118 mm[Hg] 80 mm[Hg] [facility] COUNSEL[facility] 13:57:26 Social History Question Answer Notes LastModified by [employer] ion Details LastModified Time Tobacco Smoking Status Never Smoker Marci marks [facility] CORRECTIONAL COUNSELOR 11/10/2020 14:06:23 Do You Have An Advance Directive? No Information not available 11/10/2020 What Is Your Level Of Caffeine Consumption? Moderate 2c/day Information not available 11/10/2020 Which Illicit Or Recreational Drugs Have You Used? None Information not available 11/10/2020 History Of Domestic Violence No Information no t available 11/10/2020 Marital Status Informatio n not available 11/10/2020 Sex: Unknown Functional Status Question Answer Note LastModified by Ring[employer]cha[employer] ion Details LastModified Time What is your level of alcohol consumption? Occasional 4dr/wk Information not available 11/10/2020 What is your exercise level? Moderate Information [...] Encounter Closed Date Diagnosis/Indication Diagnosis SNOMED-CT Code Diagnosis ICD10 Code Diagnosis Note [id number] HANY OLIVAREZ MD [id number] THDALE_[address] [place] ,[address] [place] [address] 11/10/2020 13:50:24 11/10/2020 14:57:03 Atypical squamous cells of undetermined significance on cervical Papanicolaou smear 293506256 R87.610 - Colposcopy today.- Post-colpo instructio ns reviewed. Await pathology results, Discussed likely pap in one year. Condyloma acuminata of vulva 614284448 A63.0 - Asymptomat ic.- Discussed needs pelvic exam yearly, sooner for any changes. Biopsy if any changes or abnormalit ies.- Could consider removal if symptoms or if prefers. Health Concerns Section Related Observation LastModified by Organization Detai ls LastModified Time None Recorded Concern Status LastModified by Organization Details LastModified Time None Recorded Advance Directives Directive N: Payers Insurance Date Sequence Insurance Name Policy Number Policy Lazo Covered Member ID Lazo Member ID Guarantor Name 11/21/2020 1 [employer] [id number] Laura Bentley [id number] Laura Bentley Notes Date Note Type Note Provider Name and Address Organization Details Recorded Time 11/10/2020 text/html 60yo postmenopau sylvester female presenting for colposcopy. 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 Last pap 08/16/15- negative 10/20/20- ASCUS, +HR HPV not 16/18 Non-smoker. No STi history. [place] [address] [facility],[address], [place], [address], [place] [facility] CORRECTIONAL COUNSELOR 11/10/2020 14:46:13 OBGyn Episode Ob Episode Information Episode Created Date Number of Fetuses Patient Bloodtype Patient rh Status Prepregnancy Weight lbs Domestic Partner Domestic Partner Phone Father Name Staff Mine Warfare Officer Status 11/11/19 21 1 CLOSED Fetus Data First Name Last Name Admitted to NICU Weight (g) Sex Living Outcome Pediatric Complications Fetus ID Race Codes Race Delivery Type 3316.66 4704 M Full Term [id number] Joel Calculation Initial Joel Date Initial Exam [...] Domestic Partner Domestic Partner Phone Father Name Staff Mine Warfare Officer Status 11/11/19 21 1 CLOSED Fetus Data First Name Last Name Admitted to NICU Weight (g) Sex Living Outcome Pediatric Complications Fetus ID Race Codes Race Delivery Type 3345.24 1 M Full Term [address]0972 Joel Calculation Initial Joel Date Initial Exam [...] Domestic Partner Domestic Partner Phone Father Name Staff Mine Warfare Officer Status 11/11/19 21 1 CLOSED Fetus Data First Name Last Name Admitted to NICU Weight (g) Sex Living Outcome Pediatric Complications Fetus ID Race Codes Race Delivery Type 3656.85 8704 F Full Term [address] Joel Calculation Initial Joel Date Initial Exam [...]
== END 2024-11-02 13:03 | disposition home or self-care (01) ==
LOC: MAMMO 13:03
PROVIDERS: PCP Physician Assistant Medical; Visit Provider Physician Assistant Medical
DX: Z12.31 Encounter for screening mammogram for malignant neoplasm of breast (principal)
CPT/HCPCS: 77063; 77067

== ENCOUNTER 2024-11-03 08:25 | Outpatient (CLI) | payer OTHER, SELFPAY ==
--- NOTE | 2024-11-03 09:25 | P.ANES_ITS ---
Anesthesia Charges Start Date/Time Anesthesia Start Date: 11/03/24 Anesthesia Start Time: 08:58 Stop Date/Time Anesthesia Stop Date: 11/03/24 Anesthesia Stop Time: 09:26 Coding CPT Codes CPT Codes: CYRIL LWR INTST SCR COLSC - 15891 ([id number]) P1 - NORMAL HEALTHY PATIENT, QK - POWER SCREWDRIVER OPERATOR 2-4 CNCRNT ANES PROC, QX - SHEARING SUPERVISOR SVC W/ MED DIRECTION
--- NOTE | 2024-11-03 09:25 | W.ANESCHARGE ---
Anesthesia Charges Start Date/Time Anesthesia Start Date: 11/03/24 Anesthesia Start Time: 08:58 Stop Date/Time Anesthesia Stop Date: 11/03/24 Anesthesia Stop Time: 09:26 Coding CPT Codes CPT Codes: CYRIL LWR INTST SCR COLSC - 56184 ([id number]) P1 - NORMAL HEALTHY PATIENT, QK - SINKER WINDER 2-4 CNCRNT ANES PROC, QX - SECURITY ARCHITECT SVC W/ MED DIRECTION
--- NOTE | 2024-11-03 09:28 | P.ANES_ITS ---
Anesthesia Charges Start Date/Time Anesthesia Start Date: 11/03/24 Anesthesia Start Time: 08:58 Stop Date/Time Anesthesia Stop Date: 11/03/24 Anesthesia Stop Time: 09:26 Coding CPT Codes CPT Codes: CYRIL LWR INTST SCR COLSC - 95169 ([id number]) P1 - NORMAL HEALTHY PATIENT, QK - BANK COMPLIANCE OFFICER 2-4 CNCRNT ANES PROC, QX - LICENSED PSYCHOLOGIST MANAGER SVC W/ MED DIRECTION
--- NOTE | 2024-11-03 09:28 | W.ANESCHARGE ---
Anesthesia Charges Start Date/Time Anesthesia Start Date: 11/03/24 Anesthesia Start Time: 08:58 Stop Date/Time Anesthesia Stop Date: 11/03/24 Anesthesia Stop Time: 09:26 Coding CPT Codes CPT Codes: CYRIL LWR INTST SCR COLSC - 34774 ([id number]) P1 - NORMAL HEALTHY PATIENT, QK - BOBBIN STRIPPER 2-4 CNCRNT ANES PROC, QX - TELEPHONE INFORMATION CLERK SVC W/ MED DIRECTION
--- OUTSIDE RECORDS SUMMARY | 2024-11-04 00:56 | XMS_ITS | Data Portability ---
Author Organization [facility] IMPORTER EXPORTER, [id number] Address [facility] [address] Care Team Providers Care Stockroom Selector Name Role Phone ROSA ELENA CANALES Primary Care Provider Assessment No assessment recorded. Plan of Treatment Reminders Order Date Submit Date Provider Last Modified By Organization Details Last Modified Time Details Appointments None recorded. Lab pathology study 2020 021 [facility] - Lab, [address] [place] [address], [address], 11:29:35 Referral None recorded. Procedures None recorded. [...] 11/10 01:45 PM [facility]bey: 11/11 08:50 [...] ----- ----- ----- Perfo rmed Not Available [facility] - Lab [address] [place], [address], 11/15/2020 11:29:35 Result Notes None recorded. Procedures Surgical History Date Name Laterality Status Provider Name and Address Organization Details Recorded Time 11/11/19 21 Colposcopy (vaginal & cervical) ([facility]) [place] [address] [address] [facility],[address], [place], [address], [facility] IMPORTER EXPORTER 11/10/2020 14:42:18 11/11/19 21 endocervical curettage completed Jung [facility] IMPORTER EXPORTER 11/15/2020 11:34:18 10/21/19 21 Date of Last Pap Smear completed Marci Anderson [facility] IMPORTER EXPORTER 11/10/2020 13:57:38 Imaging Results None recorded. Procedure Notes None recorded. Medical Equipment None Reported. Allergies No known drug allergies Medications Not known to be on any medication Vitals Date Recorded Body weight Body mass index (BMI) Body height Systolic blood pressure Diastolic blood pressure Provider Name and Address Organization Details Last Updated DateTime 11/10/2020 62220.24 g 22.8 kg/m2 167.64 cm 118 mm[Hg] 80 mm[Hg] [facility]ci [facility] IMPORTER EXPORTER 13:57:26 Social History Question Answer Notes LastModified by Works[employer] ion Details LastModified Time Tobacco Smoking Status Never Smoker Marci marks [facility] IMPORTER EXPORTER 11/10/2020 14:06:23 Do You Have An Advance [...] Functional Status Question Answer Note LastModified by [employer] ion Details LastModified Time What is your [...] SNOMED-CT Code Diagnosis ICD10 Code Diagnosis Note [id number] HANY OLIVAREZ MD [id number] THDALE_[address] [place] ,[address] [place] [phone] 11/10/2020 13:50:24 11/10/2020 14:57:03 Atypical squamous cells of undetermined significance on cervical Papanicolaou smear 105112086 R87.610 - Colposcopy today.- Post-colpo instructio ns reviewed. Await pathology results, Discussed likely pap in one year. Condyloma acuminata of vulva 769356313 A63.0 - Asymptomat ic.- Discussed needs pelvic [...] Name 11/21/2020 1 [employer] [id number] Laura Bentley [id number] Laura Bentley Notes Date Note Type Note Provider Name and Address Organization Details Recorded Time 11/10/2020 text/html 60yo postmenopau sylvester female presenting for colposcopy. 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 Last pap 08/16/15- negative 10/20/20- ASCUS, +HR HPV not 16/18 Non-smoker. No STi history. [place] [address] [facility],[address], [place], [address], [place] [facility] IMPORTER EXPORTER 11/10/2020 14:46:13 OBGyn Episode Ob Episode Information Episode Created Date Number of Fetuses Patient Bloodtype Patient rh Status Prepregnancy Weight lbs Domestic Partner Domestic Partner Phone Father Name Optical Engineer Status 11/11/19 21 1 CLOSED Fetus Data First Name Last Name Admitted to NICU Weight (g) Sex Living Outcome Pediatric Complications Fetus ID Race Codes Race Delivery Type 3316.66 4704 M Full Term [address] Joel Calculation Initial Joel Date Initial Exam [...] Domestic Partner Domestic Partner Phone Father Name Optical Engineer Status 11/11/19 21 1 CLOSED Fetus Data First Name Last Name Admitted to NICU Weight (g) Sex Living Outcome Pediatric Complications Fetus ID Race Codes Race Delivery Type 3345.24 1 M Full Term [address] Joel Calculation Initial Joel Date Initial Exam [...] Domestic Partner Domestic Partner Phone Father Name Optical Engineer Status 11/11/19 21 1 CLOSED Fetus Data First Name Last Name Admitted to NICU Weight (g) Sex Living Outcome Pediatric Complications Fetus ID Race Codes Race Delivery Type 3656.85 8704 F Full Term [address] Joel Calculation Initial Joel Date Initial Exam [...]
== END 2024-11-03 08:26 | disposition home or self-care (01) ==
LOC: OP CLINIC 08:26
PROVIDERS: PCP Physician Assistant Medical; Visit Provider Internal Medicine
DX: Z12.11 Encounter for screening for malignant neoplasm of colon (principal)
CPT/HCPCS: 00812; 45378; J2704

== ENCOUNTER 2024-11-18 14:12 | Outpatient (CLI) | payer OTHER, SELFPAY ==
--- NOTE | 2024-11-18 14:30 | CRLHL7_ITS ---
For Patients: As a result of the Century Cures Act, medical imaging exams and procedure reports are released immediately into your electronic medical record. You may view this report before your referring provider. If you have questions, please contact your health care provider. DXA BONE MINERAL DENSITY STUDY Reason for exam: Other specified disorders of bone density. Current height (in): 66. Weight (lb): 145. Menopause age: 57. Ethnicity: White. 1. Have you had a previous hip or vertebral fracture? No. 2. Have you had any fractures during your adult life which did not result from significant trauma (e.g., auto accident)? No. 3. Did either of your parents have a hip fracture? No. 4. Do you smoke? No. 5. Have you ever taken Glucocorticoids? No. 6. Do you have rheumatoid arthritis? No. 7. Do you have secondary osteoporosis? No. 8. Do you drink 3 or more alcoholic drinks per day? No. 9. Are you being treated for osteoporosis? No. 10. Have you ever taken any of the following medications: Actonel, Evista, Fosamax, Miacalcin, Reclast, Boniva, Forteo, HRT (i.e. estrogen/hormone therapy), Protelos, Prolia, Vitamin D, Calcium, other ??? please specify. ANSWER: Yes, Vitamin D and calcium. 11. Do you have any of the following medical conditions: Anorexia or bulimia, asthma or emphysema, end stage renal disease, hyperparathyroidism, any seizure disorders, cancer, inflammatory bowel diseases, hysterectomy, other ??? please specify. ANSWER: No. 12. What was your maximum height (inches)? 67. 13. Do you perform weight bearing exercise regularly? Yes. 14. Do you regularly consume dairy products? Yes. 15. Do you drink caffeinated beverages? Yes. 16. At what age did your period start? 14. 17. Are you premenopausal? No. 18. How many full-term pregnancies have you had? 3. 19. Have you ever missed your period for more than 6 months in a row (not including or menopause)? No. TECHNIQUE: Bone mineral density study was performed using the [employer]. FINDINGS: The results of the study expressed as bone mineral density (BMD) are as follows: Lumbar spine L1 to L4: BMD: 0.775 g/cm2. T-score: -2.5. Z-score: -0.9. Neck Left: BMD: 0.684 g/cm2. T-score: -1.5. Z-score: -0.1. Right: BMD: 0.661 g/cm2. T-score: -1.7. Z-score: -0.3. Total Left: BMD: 0.831 g/cm2. T-score: -0.9. Z-score: 0.2. Right: BMD: 0.842 g/cm2. T-score: -0.8. Z-score: 0.3. IMPRESSION: Osteoporosis. *Comparison exams done prior to 10/2019 were performed on different unit, [facility]. COMPARISON: Compared with scan of 12/27/2022, the bone mineral density has decreased by 4.8 percent at the spine and increased by 6.5 percent at the hip. Justin Crawley M.D. Diagnostic Radiologist [email or web address] GEOVANNA/[email or web address] mendez/Dictated by: Justin Crawley MD @ 11/18/2024 3:58:00 PM (Electronically Signed)
== END 2024-11-18 14:13 | disposition home or self-care (01) ==
LOC: RAD 14:12
PROVIDERS: PCP Physician Assistant Medical; Visit Provider Physician Assistant Medical
DX: M85.80 Other specified disorders of bone density and structure, unspecified site (principal); M81.0 Age-related osteoporosis without current pathological fracture
CPT/HCPCS: 77080